=== PATIENT | female | born 1950 | race Caucasian/White ===

== ENCOUNTER → 2017-10-01 | Outpatient (CLI) | payer MEDICARE, OTHER ==
[~2017-10-01] MED LIST: ALLEGRA ALLERG180 MG PO; CLONAZEPAM1 M1 PO; GLUMETZA500 MG PO; LANTUS100 UNIT/2 SQ; LIPITOR80 MG PO; LYRICA100 MG PO; METHOTREXATE S2.5 MG PO; RELPAX40 MG PO; ROBAXIN750 MG; SOMA250 MG PO; WELLBUTRIN SR150 MG PO; Z.0.ASPIRIN CHEW81 M; Z.0.ATENOLOL100 MG PO; Z.0.CELEXA40 MG PO; Z.0.FOLIC ACID1 MG PO; Z.0.LASIX40 MG PO; Z.0.LIBRAX CAPSULE1 PO; Z.0.LISINOPRIL20 MG PO; Z.0.METFORMIN HCL100; Z.0.NEXIUM40 MG PO; Z.0.PLAQUENIL200 MG PO; Z.0.PRAVASTATIN SOD4 PO; Z.0.ZETIA10 MG PO; [UNRECOGNIZED DRUG - OTHER]
--- NOTE | 2017-10-01 18:33 | Diagnostic Imaging Report ---
PROCEDURE: CT CHEST WITHOUT CONTRAST CT scan of the chest WITHOUT intravenous contrast, using standard protocol. TECHNIQUE: The chest was scanned utilizing a multidetector helical scanner from the apex to the level of the adrenal glands. No IV contrast was administered per physician's request. Coronal and sagittal multiplanar reformations were obtained. COMPARISON: None. INDICATIONS: SHORTNESS OF BREATH FINDINGS: Lines/tubes: None. Lungs and Airways: 3-4 mm groundglass nodule in the left upper lobe (series 3 per image 24 and coronal image 71). No other nodules. No masses or consolidation. No bronchiectasis, subpleural reticulation, or architectural distortion. Airways are clear, without endobronchial lesions. Pleura: No effusion, or pneumothorax. Heart and mediastinum: There is unremarkable. Heart size is normal. No pericardial effusion. Mild atherosclerotic calcification of the coronary arteries and thoracic aorta. Aorta is non-aneurysmal. Main pulmonary artery catheter is in the upper limit of normal, measuring 3.1 cm. Lymph nodes: No mediastinal, hilar, or axillary adenopathy. Abdomen: Limited views of the upper abdomen show no abnormality within the visualized liver, spleen, pancreas, or kidneys. The adrenal glands are unremarkable. Bones: No acute bony abnormalities. No aggressive lytic or blastic lesion. Mild degenerative disc changes in the thoracic spine. IMPRESSION: 1. 3-4 mm groundglass nodule in the left upper lobe. No further followup is indicated per Fleischner Society 2017 guidelines. Otherwise, unremarkable CT chest Isai Velasquez M.D. Dictated by: Isai Velasquez M.D. on 10/01/2017 at 18:41 Electronically approved by: Isai Velasquez M.D. on 10/01/2017 at 18:41
--- NOTE | 2017-10-02 02:22 | Diagnostic Imaging Report ---
Exam: Cervical MRA without IV contrast History: Dizziness, giddiness, vertigo Comparison studies: Cervical spine MRI of 07/08/2017. Technique: Axial 2-D qbal-io-[id number] with 3-D MIP reformats.. Contrast: None. If present, stenosis is calculated utilizing the NASCET method which calculates the degree of stenosis with reference to the normal lumen of the carotid artery distal to the stenosis. Findings: Cervical MRA: Aortic arch: Cannot evaluated due to artifacts. No gross abnormalities. Common carotid arteries: Patent, no abnormalities. Carotid bulbs: No (0%) stenosis by NASCET criteria. Internal carotid arteries: Patent, no flow abnormalities. Vertebral arteries: Origins are patent but cannot be adequately evaluated due to motion artifacts. Otherwise, no flow abnormalities. IMPRESSION: 1. Patent cervical carotid arteries. 2. No (0%) stenosis at the carotid bulbs by NASCET criteria. 3. Patent cervical vertebral arteries. Evaluation of the vertebral artery origins are limited by artifacts. Signed by: Dr. Amrit Morales M.D. on 10/02/2017 2:19 AM
== END ==
LOC: MRI 14:39
PROVIDERS: ATTEND Family Medicine
DX: R06.02 Shortness of breath (principal); R42 Dizziness and giddiness
CPT/HCPCS: 70544; 70547; 71250

== ENCOUNTER → 2018-03-22 | Outpatient (CLI) | payer MEDICARE, OTHER ==
[~2018-03-22] MED LIST changes: +IOPAMIDOL 370 MG/ML 200 ML INFUS..BTL INJ ONE; +SODIUM CHLORIDE 0.9% 250ML 500 ML ONE; +SODIUM CHLORIDE 0.9% 50ML 50 ML ONE
[2018-03-22 11:08] LABS: CREATININE, SERUM 1.36 mg/dL (0.57-1.11)
--- NOTE | 2018-03-22 15:10 | Diagnostic Imaging Report ---
PROCEDURE: CT scan of the chest WITH intravenous contrast, using standard protocol. TECHNIQUE: The chest was scanned utilizing a multidetector helical scanner from the lung apex through the level of the adrenal glands after the IV administration of 100 cc of Isovue 370. Coronal and sagittal multiplanar reformations were obtained. COMPARISON: 10/01/2017. INDICATIONS: COUGH FINDINGS: Lines/tubes: None. Lungs and Airways: Unchanged 3-4 mm groundglass nodule posteriorly within the left upper lobe (series 3 image 30). 2-3 mm juxtapleural nodule in the right lower lobe is also unchanged (series 3 image 56). No consolidation, fibrosis, or bronchiectasis. Pleura: The pleural spaces are clear. Heart and mediastinum: Stable appearance of the thyroid gland. No axillary, hilar, or mediastinal lymphadenopathy. No pericardial effusion. No ectasia or aneurysmal dilatation of the thoracic aorta. Pulmonary outflow tract is of normal caliber. Atherosclerotic calcification of the great vessels and left anterior descending coronary artery. Soft tissues: No focal soft tissue abnormalities. The coarse calcifications in the left breast. Abdomen: Visualized portions of the liver, spleen, pancreas, and adrenal glands are unremarkable. The stomach is collapsed. Bones: No osseous destructive lesions. IMPRESSION: No acute intrathoracic CT abnormalities. Overall stable appearance of the chest relative to 10/01/2017. Atherosclerotic vascular disease. Dictated by: Amrit Florez M.D. on 03/22/2018 at 12:04 Electronically approved by: Amrit Florez M.D. on 03/22/2018 at 12:04
== END ==
LOC: CT 10:34
PROVIDERS: ATTEND Family Medicine
DX: R06.02 Shortness of breath (principal)
CPT/HCPCS: 36415; 71260; 82565; 84520; J7050; Q9967

== ENCOUNTER → 2019-08-22 | Outpatient (CLI) | payer MEDICARE, OTHER ==
[~2019-08-22] MED LIST changes: -IOPAMIDOL 370 MG/ML 200 ML INFUS..BTL INJ ONE; -SODIUM CHLORIDE 0.9% 250ML 500 ML ONE; -SODIUM CHLORIDE 0.9% 50ML 50 ML ONE
--- NOTE | 2019-08-22 12:04 | Diagnostic Imaging Report ---
Examination: Brain MRI without Contrast History: Mild cognitive impairment. Memory loss. Dizziness. Falls. Comparison studies: None of the priors are available for comparison. Technique: Precontrast: Hi resolution Sag T1 with coronal and axial reformats. Axial DWI, T2, T2 flair, gradient echo or SWI Intravenous contrast: None. Findings: Structural lesions: No intra-or extra-axial masses. No hematomas. Atrophy: General: Mild bifrontal and biparietal volume loss. Focal: No hippocampal, mesencephalic, pontine, or cerebellar atrophy. Riggs matter: Cortex:No signal abnormalities. No encephalomalacia. Basal ganglia: No atrophy or signal abnormalities. Thalami: No signal abnormalities. Micro hemorrhages: None. White matter signal intensity: There are patchy and confluent areas of T2/FLAIR hyperintensity in the periventricular and subcortical and pontine white matter, nonspecific. Subarachnoid spaces: No signal abnormalities. Ventricles: Ex vacuo dilatation of the lateral and third ventricles. No hydrocephalus. Hippocampi, fornix and mammillary bodies: Normal in size and symmetric. Other: Skull: No bone marrow abnormalities. Vessels: Expected flow voids present in the major arteries and dural sinuses.. Sella: Normal in size. No intra-or suprasellar abnormalities. Cranio-cervical junction: No abnormalities. Patent foramen magnum. No Chiari one malformation. Paranasal sinuses: No T2 hyperintense mucosal thickening. IMPRESSION: 1. Mild supra and infratentorial chronic microvascular ischemic change. 2. Mild bifrontal and biparietal volume loss with ex vacuo dilatation of the lateral and third ventricles presumably from central volume loss. Signed by: Dr. Ines Mcclellan M.D. on 08/22/2019 12:01 PM
== END ==
LOC: MRI 10:17
PROVIDERS: ATTEND Family Medicine
DX: G31.84 Mild cognitive impairment of uncertain or unknown etiology (principal)
CPT/HCPCS: 70551

== ENCOUNTER → 2021-02-21 | Outpatient (CLI) | payer MEDICARE, OTHER | LOC: MRI 09:28 | PROVIDERS: ATTEND Psychiatry & Neurology Neurology | DX: G31.84 Mild cognitive impairment of uncertain or unknown etiology (principal); R26.9 Unspecified abnormalities of gait and mobility; Z86.73 Personal history of transient ischemic attack (TIA), and cerebral infarction without residual deficits | CPT/HCPCS: 70551 ==

== ENCOUNTER → 2021-04-09 | Day surgery (SDC) | payer MEDICARE, OTHER ==
[2021-04-04 12:23] LABS: BASOPHILS % 0.5 % (0.0-1.0); EOSINOPHILS # (AUTO) 0.2 (0.0-0.4); HEMATOCRIT 39.8 % (34.2-44.1); HEMOGLOBIN 12.7 g/dL (12.0-16.0); LYMPHOCYTES # (AUTO) 2.5 (1.0-3.2); LYMPHOCYTES % 32.7 % (18.0-39.1); MEAN CORPUSCULAR HEMOGLOBIN 27.1 pg (28-32); MEAN CORPUSCULAR HGB CONC 31.9 g/dL (31-35); MONOCYTES # (AUTO) 0.6 (0.2-0.8); MONOCYTES % 7.8 % (4.4-11.3); NEUTROPHILS # (AUTO) 4.2 (2.1-6.9); NEUTROPHILS % 55.6 % (38.7-80.0); PLATELET COUNT 202 x10e3/uL (140-360); RED BLOOD COUNT 4.68 x10e6/uL (3.6-5.1); RED CELL DISTRIBUTION WIDTH 13.1 % (11.7-14.4)
[~2021-04-09] MED LIST changes: +INVOKANA100 MG PO; +POVIDONE IODINE 0.05% 0.05 % ML PO ONE; +PRILOSEC OTC20 MG PO; +PROPOFOL IV EMULSION 10 MG/ML 20 ML VIAL ONE; +ROBAXIN PO; +VICODIN HP 10-1 EAC1 PO; -Z.0.ASPIRIN CHEW81 M; +Z.0.ASPIRIN CHEW81 M PO
[2021-04-09 12:48] VITALS: BP 146/64
== END | disposition home or self-care (01) ==
LOC: ENDO 09:38
PROVIDERS: ATTEND Internal Medicine Gastroenterology
DX: K59.00 Constipation, unspecified (principal); Z86.73 Personal history of transient ischemic attack (TIA), and cerebral infarction without residual deficits; K29.00 Acute gastritis without bleeding; K44.9 Diaphragmatic hernia without obstruction or gangrene; K21.9 Gastro-esophageal reflux disease without esophagitis; K58.9 Irritable bowel syndrome, unspecified; K64.8 Other hemorrhoids; Z71.3 Dietary counseling and surveillance; G47.33 Obstructive sleep apnea (adult) (pediatric); E11.9 Type 2 diabetes mellitus without complications; I10 Essential (primary) hypertension; E66.9 Obesity, unspecified; R01.1 Cardiac murmur, unspecified; I44.7 Left bundle-branch block, unspecified; N20.0 Calculus of kidney; F41.9 Anxiety disorder, unspecified; Z01.810 Encounter for preprocedural cardiovascular examination; Z01.812 Encounter for preprocedural laboratory examination; Z79.4 Long term (current) use of insulin; Z79.82 Long term (current) use of aspirin; Z68.32 Body mass index [BMI] 32.0-32.9, adult; Z86.010 Personal history of colon polyps
CPT/HCPCS: 36415 ×2; 43239; 45378; 82948; 85025; 88305; 88312; 93005; J2704; 43235

== ENCOUNTER → 2021-06-30 | Outpatient (CLI) | payer MEDICARE, OTHER ==
[~2021-06-30] MED LIST changes: -POVIDONE IODINE 0.05% 0.05 % ML PO ONE; -PROPOFOL IV EMULSION 10 MG/ML 20 ML VIAL ONE
== END ==
LOC: MRI 09:50
PROVIDERS: ATTEND Family Medicine
DX: M25.561 Pain in right knee (principal); M71.21 Synovial cyst of popliteal space [Baker], right knee

== ENCOUNTER 2022-02-13 08:57 | Outpatient (RCR) | payer MEDICARE, OTHER | END 2022-02-17 | LOC: PT 08:57 | PROVIDERS: ATTEND Orthopaedic Surgery Orthopaedic Trauma | DX: S82.851A Displaced trimalleolar fracture of right lower leg, initial encounter for closed fracture (principal) ==

== ENCOUNTER 2022-03-11 11:00 | Outpatient (RCR) | payer MEDICARE, OTHER | END 2022-03-19 | LOC: PT 11:00 | PROVIDERS: ATTEND Orthopaedic Surgery Orthopaedic Trauma | DX: S82.851A Displaced trimalleolar fracture of right lower leg, initial encounter for closed fracture (principal) | CPT/HCPCS: 97139 ==

== ENCOUNTER 2022-04-15 13:47 | Outpatient (RCR) | payer MEDICARE, OTHER | END 2022-04-19 | LOC: PT 13:47 | PROVIDERS: ATTEND Orthopaedic Surgery Orthopaedic Trauma | DX: S82.851A Displaced trimalleolar fracture of right lower leg, initial encounter for closed fracture (principal) | CPT/HCPCS: 97139 ==

== ENCOUNTER 2022-04-20 07:57 | Outpatient (RCR) | payer MEDICARE, OTHER | END 2022-05-20 | LOC: PT 07:57 | PROVIDERS: ATTEND Orthopaedic Surgery Orthopaedic Trauma | DX: S82.851A Displaced trimalleolar fracture of right lower leg, initial encounter for closed fracture (principal) ==

== ENCOUNTER 2022-06-18 09:58 | Outpatient (RCR) | payer MEDICARE, OTHER | END 2022-06-19 | LOC: PT 09:58 | PROVIDERS: ATTEND Orthopaedic Surgery Orthopaedic Trauma | DX: S82.851A Displaced trimalleolar fracture of right lower leg, initial encounter for closed fracture (principal) ==

== ENCOUNTER 2022-07-14 10:35 | Outpatient (RCR) | payer MEDICARE, OTHER | END 2022-07-20 | LOC: PT 10:35 | PROVIDERS: ATTEND Orthopaedic Surgery Orthopaedic Trauma | DX: M25.571 Pain in right ankle and joints of right foot (principal); M25.471 Effusion, right ankle; M62.81 Muscle weakness (generalized); R26.89 Other abnormalities of gait and mobility; M25.671 Stiffness of right ankle, not elsewhere classified ==

== ENCOUNTER → 2022-07-20 | Outpatient (CLI) | payer MEDICARE, OTHER | LOC: MAMMO 10:18 | PROVIDERS: ATTEND Family Medicine | DX: Z12.31 Encounter for screening mammogram for malignant neoplasm of breast (principal) | CPT/HCPCS: 77067 ==

== ENCOUNTER → 2022-08-06 | Outpatient (CLI) | payer MEDICARE, OTHER | LOC: MAMMO 11:27 | PROVIDERS: ATTEND Family Medicine | DX: N63.20 Unspecified lump in the left breast, unspecified quadrant (principal); R92.2 Inconclusive mammogram ==

== ENCOUNTER 2022-08-18 10:00 | Outpatient (RCR) | payer MEDICARE, OTHER | END 2022-08-19 | LOC: PT 10:00 | PROVIDERS: ATTEND Orthopaedic Surgery Orthopaedic Trauma | DX: M25.571 Pain in right ankle and joints of right foot (principal); M25.471 Effusion, right ankle; M25.671 Stiffness of right ankle, not elsewhere classified; M62.81 Muscle weakness (generalized); R26.89 Other abnormalities of gait and mobility ==

== ENCOUNTER → 2023-01-14 | Outpatient (CLI) | payer MEDICARE, OTHER | LOC: MAMMO 08:27 | PROVIDERS: ATTEND Family Medicine | DX: N64.4 Mastodynia (principal) | CPT/HCPCS: 77066 ==

== ENCOUNTER → 2023-03-10 | Outpatient (CLI) | payer MEDICARE, OTHER | LOC: DX 09:02 | PROVIDERS: ATTEND Family Medicine | DX: Z13.820 Encounter for screening for osteoporosis (principal) | CPT/HCPCS: 77080 ==

== ENCOUNTER → 2024-01-17 | Outpatient (REF) | payer MEDICARE, OTHER ==
[~2024-01-17] MED LIST changes: +CIPRO500 MG PO; +LANTUS 3ML100 UNITS/ SQ; +NEXIUM40 MG PO; +OZEMPIC0.25 MG/02 SQ
== END ==
LOC: CT 16:54
PROVIDERS: ATTEND Nurse Practitioner Family
DX: S06.2X0A Diffuse traumatic brain injury without loss of consciousness, initial encounter (principal)
CPT/HCPCS: 70450

== ENCOUNTER 2025-05-25 11:56 | Observation (INO) | payer MEDICARE, OTHER ==
[~2025-05-25] VITALS: Ht 157.5 cm; Wt 61.2 kg
[2025-05-25 12:47] LABS: BASOPHILS % 0.3 % (0.0-1.0); EOSINOPHILS % 2.2 % (0.0-6.0); LYMPHOCYTES % 14.3 % (18.0-39.1); MONOCYTES % 9.2 % (4.4-11.3); NEUTROPHILS % 73.6 % (38.7-80.0); RED CELL DISTRIBUTION WIDTH 13.1 % (11.7-14.4)
[2025-05-25 13:03] LABS: EST GLOMERULAR FILTRATION RATE 77.0 ML/MIN (>=60); INR 0.87
[2025-05-25] MEDS: SODIUM CHLORIDE 0.9% 1000ML 1,000 ML IV STA (13:26)
[2025-05-25] MEDS: MIDODRINE HCL 5 MG TABLET PO SCH (13:27)
[2025-05-25 14:22] VITALS: PULSE 75; RESP 17; TEMP 97.8
[2025-05-25] MEDS: SODIUM CHLORIDE 0.9% 1000ML 1,000 ML IV ONE (15:03)
[2025-05-25 15:25] VITALS: BP 98/71; PULSE 76; RESP 17; TEMP 97.6; O2SAT 96
[2025-05-25 16:00] VITALS: BP 98/71; PULSE 76; RESP 17; TEMP 97.6; O2SAT 96
[2025-05-25] MEDS ORDERED: MYRBETRIQ50 MG PO (18:03)
[2025-05-25] MEDS ORDERED: LINZESS72 MCG PO (18:03)
[2025-05-25] MEDS ORDERED: VESICARE5 MG PO (18:03)
[2025-05-25] MEDS ORDERED: METFORMIN HCL500 MG PO (18:03)
[2025-05-25] MEDS ORDERED: ENTRESTO 24 MG1 EACH PO (18:03)
[2025-05-25] MEDS ORDERED: PLAVIX75 MG PO (18:03)
[2025-05-25] MEDS ORDERED: NEURONTIN300 MG PO (18:03)
[2025-05-25] MEDS ORDERED: OXYBUTYNIN CHLOR5 MG PO (18:03)
[2025-05-25] MEDS ORDERED: FAMOTIDINE20 MG PO (18:03)
[2025-05-25] MEDS ORDERED: FLUDROCORTISON0.1 MG PO (18:03)
[2025-05-25] MEDS ORDERED: ZETIA10 MG PO (18:03)
[2025-05-25] MEDS ORDERED: MELATONIN3 MG PO (18:03)
[2025-05-25] MEDS ORDERED: CARVEDILOL3.125 MG PO (18:03)
[2025-05-25] MEDS ORDERED: VITAMIN B-121000 MC1 PO (18:10)
[2025-05-25 18:52] LABS: LEUKOCYTE ESTERASE ,URINE NEGATIVE (NEGATIVE); PROTEIN,URINE DIPSTICK NEGATIVE (NEGATIVE); URINE UROBILINOGEN 0.2 mg/dL (0.2 - 1)
[2025-05-25] MEDS ORDERED: DEXTROSE 50% SYRINGE 50 ML IV PRN (19:00)
[2025-05-25] MEDS ORDERED: NON-FORMULARY MEDICATION (Linaclotide (Linzess) 1 CAP) PO PRN (19:00)
[2025-05-25 19:08] LABS: EPITHELIAL CELLS,URINE FEW /LPF; WBC,URINE (MAN) 0-5 /HPF (0-5)
[2025-05-25 20:43] VITALS: BP 139/56; PULSE 80; RESP 18; TEMP 96.9; O2SAT 96
[2025-05-25 21:00] VITALS: BP 139/56; PULSE 80; RESP 18; TEMP 96.9; O2SAT 96
[2025-05-25] MEDS: INSULIN GLARGINE 100 UNITS/ML VIAL SQ SCH (21:00)
[2025-05-25] MEDS: INSULIN LISPRO 100 UNIT/1 ML 3ML VIAL SQ SCH (21:00)
[2025-05-25] MEDS: MELATONIN 3 MG TAB PO SCH (22:00)
[2025-05-25] MEDS: GABAPENTIN 300 MG CAP PO SCH (22:00)
[2025-05-25 23:03] VITALS: BP 139/70; PULSE 79; RESP 18; TEMP 96.8; O2SAT 98
[2025-05-26 05:39] VITALS: BP 152/52; PULSE 86; RESP 18; TEMP 98.1; O2SAT 97
[2025-05-26 05:45] LABS: BASOPHILS % 0.2 % (0.0-1.0); EOSINOPHILS % 3.3 % (0.0-6.0); LYMPHOCYTES % 22.0 % (18.0-39.1); MONOCYTES % 14.2 % (4.4-11.3); NEUTROPHILS % 59.9 % (38.7-80.0); RED CELL DISTRIBUTION WIDTH 13.4 % (11.7-14.4)
[2025-05-26 06:13] LABS: EST GLOMERULAR FILTRATION RATE 86.0 ML/MIN (>=60)
[2025-05-26 09:00] VITALS: BP 162/61; PULSE 94; RESP 18; TEMP 99.1; O2SAT 97
[2025-05-26] MEDS ORDERED: METFORMIN HCL 500 MG TAB PO SCH (09:00)
[2025-05-26] MEDS ORDERED: MIRABEGRON PO SCH (09:00)
[2025-05-26 09:54] VITALS: BP 162/61; PULSE 94; RESP 17; TEMP 99.9; O2SAT 97
[2025-05-26] MEDS: OXYBUTYNIN CHLORIDE 5 MG TAB PO SCH (10:03)
[2025-05-26] MEDS: EZETIMIBE 10 MG TAB PO SCH (10:04)
[2025-05-26] MEDS: CYANOCOBALAMIN 1,000 MCG TAB PO SCH (10:04)
[2025-05-26] MEDS: ASPIRIN 81 MG CHEW TAB PO SCH (10:04)
[2025-05-26] MEDS: CARVEDILOL 3.125 MG TAB PO SCH (10:04)
[2025-05-26] MEDS: SACUBITRIL/VALSARTAN 24MG/26MG 1 EA TAB PO SCH (10:04)
[2025-05-26] MEDS: PANTOPRAZOLE SOD 40 MG TABEC PO SCH (10:04)
[2025-05-26] MEDS: SOLIFENACIN SUCCINATE 5 MG TAB PO SCH (10:04)
[2025-05-26] MEDS: BUPROPION HCL SR 150 MG TAB PO SCH (10:04)
[2025-05-26] MEDS: CLOPIDOGREL BISULFATE 75 MG TAB PO SCH (10:04)
[2025-05-26] MEDS: FAMOTIDINE 20 MG TAB PO SCH (10:04)
[2025-05-26] MEDS: CANAGLIFLOZIN 100 MG TABLET PO SCH (10:18)
[2025-05-26] MEDS: FLUDROCORTISONE ACETATE 0.1 MG TAB PO SCH (10:19)
[2025-05-26 12:00] VITALS: BP 125/78; PULSE 88; RESP 19; TEMP 99.5; O2SAT 98
== END 2025-05-26 14:10 | disposition home or self-care (01) ==
LOC: ER 12:13 → ERHOLD 14:12 → MED/SURG3 15:32
PROVIDERS: ADMIT Family Medicine; ATTEND Family Medicine
DX: R55 Syncope and collapse (principal); I95.9 Hypotension, unspecified; I25.10 Atherosclerotic heart disease of native coronary artery without angina pectoris; E11.319 Type 2 diabetes mellitus with unspecified diabetic retinopathy without macular edema; G90.1 Familial dysautonomia [Riley-Day]; I10 Essential (primary) hypertension; Z87.440 Personal history of urinary (tract) infections; Z79.85 Long-term (current) use of injectable non-insulin antidiabetic drugs; Z79.4 Long term (current) use of insulin
CPT/HCPCS: 36415 ×2; 70450; 71045; 80053 ×2; 81001; 82550 ×2; 82948 ×2; 83735; 84484 ×2; 85025 ×2; 85610; 85730; 93005; 99284; G0378 ×2; J2470; J7030